=== PATIENT | female | born 1945 ===

== ENCOUNTER → 2016-04-18 | Day surgery (SDC) | payer MEDICARE, BC ==
[~2016-04-18] MED LIST: ABILIFY5 MG PO; ADULT LOW DOSE81 MG PO; ASPIR 8181 MG PO; ASPIR-LOW81 MG PO; HAIR, SKIN & N1 EAC1 PO; HYDROCODON-ACE1 EACH PO; IBUPROFEN400 MG PO; LEVAQUIN TAB 5500 MG PO; LEXAPRO10 MG PO; LOFIBRA160 MG PO; LOVENOX SY30 MG/0.3 SQ; MOBIC7.5 MG PO; NORCO 7.5-3251 EACH PO; PERCOCET 10-321 EACH PO; PRESERVISION A1 EAC1 PO; PRESERVISION PO; PROTONIX 40 MG40 M1 PO; SULFAMETHOXAZO1 EACH PO; TRAZODONE HCL100 MG PO; TYLENOL ARTHRITIS PO; VANCOMYCIN1.25 GM/25 IV; VITAMIN B-12250 MCG PO; VITAMIN B12-FO1 EACH SL; VITAMIN C 500500 MG PO; VITAMIN D 11000 UNIT PO; VITAMIN D1000 UNIT PO; XARELTO 10 MG T10 MG PO; XARELTO10 MG PO; ZANTAC 150 MG150 MG PO; ZANTAC300 MG PO; ZYRTEC10 M3 PO; ZYRTEC10 MG PO
[2016-04-18 09:52] LABS: HEMOGLOBIN 11.3 gm/dl (12.3-15.3); RED BLOOD COUNT 4.29 M/UL (4.00-5.10); WHITE BLOOD COUNT 5.4 K/UL (4.5-11.0)
[2016-04-18 10:21] LABS: BUN/CREATININE RATIO 16 (0-10)
== END | disposition home or self-care (01) ==
LOC: OPSV2 09:00
PROVIDERS: Orthopaedic Surgery
DX: Z01.812 Encounter for preprocedural laboratory examination (principal); Z01.810 Encounter for preprocedural cardiovascular examination; Z01.818 Encounter for other preprocedural examination; M17.12 Unilateral primary osteoarthritis, left knee; E78.5 Hyperlipidemia, unspecified
CPT/HCPCS: 36415; 71020; 80048; 85025; 87077; 87081; 87086; 87186; 93005

== ENCOUNTER → 2016-04-29 | Outpatient (CLI) | payer MEDICARE, BC | LOC: LAB 10:58 | DX: Z01.812 Encounter for preprocedural laboratory examination (principal) | CPT/HCPCS: 36415; 80051; 82565; 84520; 86850; 86900; 86901 ==

== ENCOUNTER 2016-04-30 08:03 | Inpatient (IN) | payer MEDICARE, BC ==
[~2016-04-30] VITALS: Ht 170.2 cm; Wt 108.9 kg
[~2016-04-30 08:03] MED LIST changes: -ASPIR-LOW81 MG PO; -HYDROCODON-ACE1 EACH PO; -LEVAQUIN TAB 5500 MG PO; -LOVENOX SY30 MG/0.3 SQ; -MOBIC7.5 MG PO; -PRESERVISION PO; -SULFAMETHOXAZO1 EACH PO; -TYLENOL ARTHRITIS PO; -VANCOMYCIN1.25 GM/25 IV; -VITAMIN B-12250 MCG PO; -VITAMIN D1000 UNIT PO; -XARELTO10 MG PO; -ZANTAC 150 MG150 MG PO; -ZYRTEC10 MG PO
[2016-04-30] MEDS ORDERED: VITAMIN B-12250 MCG PO (09:52)
[2016-04-30] MEDS ORDERED: ZYRTEC10 MG PO (09:52)
[2016-04-30] MEDS ORDERED: VITAMIN C 500500 MG PO (09:52)
[2016-04-30] MEDS ORDERED: MOBIC7.5 MG PO (09:53)
[2016-04-30] MEDS ORDERED: LEXAPRO10 MG PO (09:54)
[2016-04-30] MEDS ORDERED: ABILIFY5 MG PO (09:54)
[2016-04-30] MEDS ORDERED: PERCOCET 10-321 EACH PO (09:56)
[2016-04-30] MEDS ORDERED: ASPIR 8181 MG PO (09:56)
[2016-04-30] MEDS ORDERED: PROTONIX 40 MG40 M1 PO (09:58)
[2016-04-30] MEDS ORDERED: PRESERVISION PO (09:58)
[2016-04-30] MEDS ORDERED: LOFIBRA160 MG PO (09:59)
[2016-04-30] MEDS ORDERED: TRAZODONE HCL100 MG PO (09:59)
[2016-04-30] MEDS ORDERED: VITAMIN D1000 UNIT PO (10:00)
[2016-04-30] MEDS ORDERED: TYLENOL ARTHRITIS PO (10:01)
[2016-05-01 06:03] LABS: HEMOGLOBIN 8.8 gm/dl (12.3-15.3); RED BLOOD COUNT 3.35 M/UL (4.00-5.10); WHITE BLOOD COUNT 10.1 K/UL (4.5-11.0)
[2016-05-01 06:18] LABS: BUN/CREATININE RATIO 16 (0-10)
[2016-05-02 05:58] LABS: HEMOGLOBIN 8.1 gm/dl (12.3-15.3); RED BLOOD COUNT 3.06 M/UL (4.00-5.10); WHITE BLOOD COUNT 10.6 K/UL (4.5-11.0)
[2016-05-02 06:28] LABS: BUN/CREATININE RATIO 16 (0-10)
[2016-05-03 06:12] LABS: HEMOGLOBIN 7.5 gm/dl (12.3-15.3); RED BLOOD COUNT 2.85 M/UL (4.00-5.10); WHITE BLOOD COUNT 9.1 K/UL (4.5-11.0)
[2016-05-03 06:23] LABS: BUN/CREATININE RATIO 18 (0-10)
[2016-05-03] MEDS ORDERED: XARELTO10 MG PO (11:45)
[2016-06-20] MEDS ORDERED: LEVAQUIN TAB 5500 MG PO (09:23)
[2016-06-20] MEDS ORDERED: HYDROCODON-ACE1 EACH PO (13:48)
[2016-09-13] MEDS ORDERED: SULFAMETHOXAZO1 EACH PO (14:51)
[2016-09-13] MEDS ORDERED: ZANTAC 150 MG150 MG PO (14:54)
[2016-09-13] MEDS ORDERED: ASPIR-LOW81 MG PO (14:59)
[2016-09-20] MEDS ORDERED: VANCOMYCIN1.25 GM/25 IV (13:20)
[2016-09-20] MEDS ORDERED: LOVENOX SY30 MG/0.3 SQ (13:21)
[2016-09-20] MEDS ORDERED: PERCOCET 10-321 EACH PO (13:31)
== END 2016-05-03 15:15 | disposition home health service (06) | DRG 467 ==
LOC: ZOBSOF 08:03 → ZEROF 09:00 → ZOBSOF 09:00 → M/S 16:49
PROVIDERS: Family Medicine; ADMIT Orthopaedic Surgery
PROC: 0SUD09C Supplement Left Knee Joint with Liner, Patellar Surface, Open Approach (ICD-10-PCS; principal; 2016-04-30 11:15)
PROC: 0SPW0JZ Removal of Synthetic Substitute from Left Knee Joint, Tibial Surface, Open Approach (ICD-10-PCS; principal; 2016-04-30 11:15)
PROC: 0SPU0JZ Removal of Synthetic Substitute from Left Knee Joint, Femoral Surface, Open Approach (ICD-10-PCS; principal; 2016-04-30 11:15)
PROC: 0SRW0J9 Replacement of Left Knee Joint, Tibial Surface with Synthetic Substitute, Cemented, Open Approach (ICD-10-PCS; principal; 2016-04-30 11:15)
PROC: 0SPD09Z Removal of Liner from Left Knee Joint, Open Approach (ICD-10-PCS; principal; 2016-04-30 11:15)
PROC: 0SRU0J9 Replacement of Left Knee Joint, Femoral Surface with Synthetic Substitute, Cemented, Open Approach (ICD-10-PCS; principal; 2016-04-30 11:15)
DX: T84.023A Instability of internal left knee prosthesis, initial encounter (principal); D62 Acute posthemorrhagic anemia; M17.12 Unilateral primary osteoarthritis, left knee; M25.562 Pain in left knee; R26.2 Difficulty in walking, not elsewhere classified; F41.9 Anxiety disorder, unspecified; M81.0 Age-related osteoporosis without current pathological fracture; F32.9 Major depressive disorder, single episode, unspecified; Z96.652 Presence of left artificial knee joint; M79.7 Fibromyalgia; R06.83 Snoring; J43.9 Emphysema, unspecified; K21.9 Gastro-esophageal reflux disease without esophagitis; K44.9 Diaphragmatic hernia without obstruction or gangrene; Z79.899 Other long term (current) drug therapy; Z79.82 Long term (current) use of aspirin; Z79.891 Long term (current) use of opiate analgesic
CPT/HCPCS: 36415; 73560; 80048; 80051; 80053; 81001; 82565; 84520; 85025; 85027; 86850; 86900; 86901; 87070; 87086; 97110; 97116; 97530; 97535; J0690; J1100; J2250; J2270; J2405; J3010; J3370; J7030; J7050; J7120

== ENCOUNTER → 2016-06-20 | Day surgery (SDC) | payer MEDICARE, BC ==
[~2016-06-20] VITALS: Ht 170.2 cm; Wt 110.7 kg
[~2016-06-20] MED LIST changes: +ASPIR-LOW81 MG PO; +HYDROCODON-ACE1 EACH PO; +LEVAQUIN TAB 5500 MG PO; +LOVENOX SY30 MG/0.3 SQ; +MOBIC7.5 MG PO; +PRESERVISION PO; +SULFAMETHOXAZO1 EACH PO; +TYLENOL ARTHRITIS PO; +VANCOMYCIN1.25 GM/25 IV; +VITAMIN B-12250 MCG PO; +VITAMIN D1000 UNIT PO; +XARELTO10 MG PO; +ZANTAC 150 MG150 MG PO; +ZYRTEC10 MG PO
== END | disposition home or self-care (01) ==
LOC: OR 08:43 → EDSTATUS 15:30
PROVIDERS: Orthopaedic Surgery
PROC: 0JBP0ZZ Excision of Left Lower Leg Subcutaneous Tissue and Fascia, Open Approach (ICD-10-PCS; principal; 2016-06-20 15:30)
DX: T81.30XA Disruption of wound, unspecified, initial encounter (principal); E78.5 Hyperlipidemia, unspecified; M79.7 Fibromyalgia; M19.90 Unspecified osteoarthritis, unspecified site; G89.29 Other chronic pain; M81.0 Age-related osteoporosis without current pathological fracture; J43.9 Emphysema, unspecified; K21.9 Gastro-esophageal reflux disease without esophagitis; Z86.718 Personal history of other venous thrombosis and embolism; Z86.010 Personal history of colon polyps; Z79.891 Long term (current) use of opiate analgesic; Z79.899 Other long term (current) drug therapy; Z90.710 Acquired absence of both cervix and uterus; Z90.49 Acquired absence of other specified parts of digestive tract; Z90.721 Acquired absence of ovaries, unilateral; Z87.19 Personal history of other diseases of the digestive system; Z87.440 Personal history of urinary (tract) infections; Z98.41 Cataract extraction status, right eye; Z98.42 Cataract extraction status, left eye; Z96.652 Presence of left artificial knee joint
CPT/HCPCS: 87070; J2250; J3010; J7030; J7120

== ENCOUNTER → 2020-03-22 | Outpatient (CLI) | payer MEDICARE, BC ==
[~2020-03-22] MED LIST changes: +ABILIFY2 MG PO; +AUGMENTIN 875-1 EACH PO; +BACTRIM DS TAB1 EACH PO; +BENADRYL 25MG C25 MG PO; +CELEBREX200 MG PO; +ELIQUIS 2.5 MG2.5 MG GT; +FLONASE 0.05% N16 GM; +LAMISIL TAB 25250 MG PO; +LOPRESSOR 25 MG25 MG PO; +METHENAMINE HIPP1 GM PO; +NORCO 10-325 T1 EACH PO; +OS-CAL 500+D31 EACH PO; +PROBIOTIC FORM1 EACH PO; +PROTONIX40 MG PO; +SLOW RELEASE I143 MG PO; +VITAMIN B COMP1 EAC1 PO; +VITAMIN C1000 MG PO; +ZANTAC150 MG PO
== END ==
LOC: EMI 10:55
DX: M47.26 Other spondylosis with radiculopathy, lumbar region (principal); M51.16 Intervertebral disc disorders with radiculopathy, lumbar region; M25.78 Osteophyte, vertebrae
CPT/HCPCS: 72148

== ENCOUNTER 2020-06-01 08:52 | Emergency (ER) | payer MEDICARE, BC ==
[~2020-06-01 08:52] MED LIST changes: -AUGMENTIN 875-1 EACH PO
[2020-06-01 09:48] LABS: HEMOGLOBIN 12.5 gm/dl (12.3-15.3); RED BLOOD COUNT 4.64 M/UL (4.00-5.10); WHITE BLOOD COUNT 12.9 K/UL (4.5-11.0)
[2020-06-01] MEDS ORDERED: AUGMENTIN 875-1 EACH PO (12:29)
== END 2020-06-01 12:55 | disposition home or self-care (01) ==
LOC: ER1 08:52
PROVIDERS: Physician Assistant
DX: K57.32 Diverticulitis of large intestine without perforation or abscess without bleeding (principal); I48.91 Unspecified atrial fibrillation; E78.5 Hyperlipidemia, unspecified; I10 Essential (primary) hypertension; Z90.710 Acquired absence of both cervix and uterus; Z90.49 Acquired absence of other specified parts of digestive tract
CPT/HCPCS: 80053; 81001; 85025; 96374; 96375; 99284; J2270; J2405; Q9967

== ENCOUNTER → 2021-03-13 | Outpatient (CLI) | payer MEDICARE, BC ==
[~2021-03-13] MED LIST changes: +AUGMENTIN 875-1 EACH PO
== END ==
LOC: LAB 11:14
DX: H53.10 Unspecified subjective visual disturbances (principal)
CPT/HCPCS: 36415

== ENCOUNTER → 2021-07-04 | Outpatient (CLI) | payer MEDICARE, BC | LOC: KOH-I 12:38 | DX: N17.9 Acute kidney failure, unspecified (principal) | CPT/HCPCS: 76775 ==

== ENCOUNTER → 2021-08-13 | Outpatient (CLI) | payer MEDICARE, BC | LOC: MAMO 08-08 13:00 | DX: Z12.31 Encounter for screening mammogram for malignant neoplasm of breast (principal) | CPT/HCPCS: 77063; 77067 ==